=== PATIENT | female | born 1990 | race Asian ===

== ENCOUNTER 2017-06-05 18:12 | Emergency (ER) | payer OTHER ==
[~2017-06-05] VITALS: Ht 167.6 cm; Wt 74.8 kg
--- NOTE | 2017-06-05 18:34 | ED GU-Female ---
General Stated Complaint: BACK PAIN;ABD PAIN Source: patient Exam Limitations: language barrier (using a Google hull and deck remover text device) History of Present Illness Time seen by provider: 18:29 Initial Comments Patient presents the ER by private conveyance with a chief complaint of burning when she peas as well as some bilateral lower inguinal pain that extends to her back on both sides. She has no history of stones. She is not on any medications nor does she have any significant medical or surgical history. Her last menstrual period was May 09. Allergies and Home Medications Allergies Coded Allergies: No Known Drug Allergies (Unverified , 06/05/17) Home Medications No Active Prescriptions or Reported Meds Constitutional: No chills, No diaphoresis, No fever, No malaise Respiratory: No cough, No short of breath Cardiovascular: No chest pain, No palpitations Gastrointestinal: see HPI, abdominal pain (LLQ, right lower quadrant), No constipation, No heartburn, No nausea, No vomiting Genitourinary: burning, denies discharge, dysuria : No Musculoskeletal: see HPI, back pain, No joint pain, No joint swelling Skin: No pruritus, No rash Psychiatric/Neurological: Denies Emotional Problems, Denies Headache Past Vqvzmya-Fqkwsy-Kldnwd Hx Patient Social History Alcohol Use: Denies Use Recreational Drug Use: No Smoking Status: Never a Smoker Recent Foreign Travel: No Contact w/Someone Who Travel: No Physical Exam Vital Signs Vital Sign - Last 12Hours 06/05/17 18:28 Temp 97.0 Pulse 104 Resp 20 B/P (MAP) 137/85 Pulse Ox 100 Capillary Refill : General Appearance: WD/WN, no apparent distress HEENT: PERRL/EOMI, pharynx normal Neck: full range of motion, normal inspection Back: normal inspection, no CVA tenderness Extremities: normal inspection, no pedal edema, normal capillary refill Neurologic/Psychiatric: alert, oriented x 3 Skin: normal color, warm/dry Progress/Results/Core Measures Results/Orders Lab Results Laboratory Tests Test 06/05/17 18:40 Range/Units Urine Color YELLOW Urine Clarity SLIGHTLY CLOUDY Urine pH 7 5-9 Urine Specific [place] 1.015 L 1.016-1.022 Urine Protein NEGATIVE NEGATIVE Urine Glucose (UA) NEGATIVE NEGATIVE Urine Ketones NEGATIVE NEGATIVE Urine Nitrite NEGATIVE NEGATIVE Urine Bilirubin NEGATIVE NEGATIVE Urine Urobilinogen NORMAL NORMAL MG/DL Urine Leukocyte Esterase 1+ H NEGATIVE Urine RBC (Auto) 2+ H NEGATIVE Urine RBC 0-2 /HPF Urine WBC 0-2 /HPF Urine Squamous Epithelial Cells 5-10 /HPF Urine Crystals NONE /LPF Urine Bacteria FEW H /HPF Urine Casts NONE /LPF Urine Mucus NEGATIVE /LPF Urine Culture Indicated NO My Orders Orders - LUISA WILCOX Ua Culture If Indicated (06/05/17 18:35) Urine Bedside (06/05/17 18:35) Us Non Ob Pelvis Comp/Transvag (06/05/17 19:10) Vital Signs/I&O Vital Sign - Last 12Hours 06/05/17 18:28 Temp 97.0 Pulse 104 Resp 20 B/P (MAP) 137/85 Pulse Ox 100 Progress Note #1: Time: 19:11 Progress Note Urinalysis doesn't really give us an excellent information for her one-week bilateral lower pelvic pain. I would have concern for possible tubal torsion versus other problem. We'll go ahead and obtain a ultrasound of her pelvis this time. We used the language line to convey this information to the patient and she is okay with this. Progress Note #2: Time: 21:15 Diagnostic Imaging Diagonstic Imaging: Ultrasound Plain Films/CT/US/NM/MRI: pelvis Comments NAME: NANDINI HUERTA [facility] REC#: [id number] PHYSICIAN: LUISA WILCOX MD CC: SERA OSPINA MD; LUISA WILCOX Page 1 of 1 RADIOLOGY REPORT VIA [facility]. [place], [place] CC: SERA OSPINA MD; LUISA WILCOX Page 1 of 1 RADIOLOGY REPORT NAME: NANDINI HUERTA [facility] REC#: [id number] PT STATUS: REG ER : 1990 PHYSICIAN: LUISA WILCOX MD ADMIT DATE: 06/05/17/ER Signed Date of Exam: 06/05/17 US NON OB PELVIS COMP/TRANSVAG INDICATION: 26-year-old female with pelvic pain. COMPARISONS: None. FINDINGS: The uterus measures 5.2 cm x 4.4 cm x 4.0 cm and is retroflexed. The endometrium measures 8 mm in thickness. Right ovary measures 3.2 cm x 2.6 cm x 3.2 cm, and the left ovary measures 2.6 cm x 2.0 cm x 1.9 cm. Both ovaries show several follicles with normal flow by color Doppler. There are no abnormal adnexal masses. There is no free fluid in the cul-de-sac. IMPRESSION: Unremarkable sonographic evaluation of the uterus and adnexa. Dictated by: Dictated on workstation # [id number] Dict: 06/05/172055 Trans: 06/05/172105 Interpreted by: SERA OSPINA MD Electronically signed by: SERA OSPINA MD 06/05/172105 Reviewed: Reviewed by Me Departure Impression Impression: Primary Impression: Pelvic pain Disposition: 01 HOME, SELF-CARE Condition: Stable Departure-Patient Inst. Decision time for Depature: 21:21 Referrals: NO,LOCAL PHYSICIAN (PCP) Primary Care Physician Patient Instructions: Acute Pelvic Pain (DC) Add. Discharge Instructions: Drink plenty of fluids and take the medication as prescribed. Follow up with your primary care physician tomorrow morning. I recommend Ibuprofen 800mg every eight hours and heating pads. Scripts No Active Prescriptions or Reported Meds LUISA WILCOX Jun 05, 2017 18:34
[2017-06-05 18:47] LABS: BILIRUBIN,URINE NEGATIVE (NEGATIVE); KETONES,URINE NEGATIVE (NEGATIVE); LEUKOCYTE ESTERASE ,URINE 1+ (NEGATIVE); NITRITE,URINE NEGATIVE (NEGATIVE); PH,URINE 7 (5-9); PROTEIN,URINE NEGATIVE (NEGATIVE); UROBILINOGEN,URINE NORMAL (NORMAL)
[2017-06-05 19:02] LABS: WBC,URINE 0-2 /HPF
--- NOTE | 2017-06-05 21:04 | Diagnostic Imaging Report ---
INDICATION: 26-year-old female with pelvic pain. COMPARISONS: None. FINDINGS: The uterus measures 5.2 cm x 4.4 cm x 4.0 cm and is retroflexed. The endometrium measures 8 mm in thickness. Right ovary measures 3.2 cm x 2.6 cm x 3.2 cm, and the left ovary measures 2.6 cm x 2.0 cm x 1.9 cm. Both ovaries show several follicles with normal flow by color Doppler. There are no abnormal adnexal masses. There is no free fluid in the cul-de-sac. IMPRESSION: Unremarkable sonographic evaluation of the uterus and adnexa. Dictated by: Dictated on workstation # [id number]
[2017-06-05 21:32] VITALS: BP 0/0
[2017-06-06] MEDS ORDERED: NAPR500T PO (15:40)
[2017-06-06] MEDS ORDERED: ONDA8TAB13 PO (15:40)
== END 2017-06-05 21:32 | disposition home or self-care (01) ==
LOC: ER 18:17
DX: R10.2 Pelvic and perineal pain (principal)
CPT/HCPCS: 76830; 76856; 81000; 84703; 99282

== ENCOUNTER 2017-06-06 11:32 | Emergency (ER) | payer OTHER ==
[~2017-06-06] VITALS: Ht 167.6 cm; Wt 74.8 kg
[2017-06-06 12:41] LABS: BASOPHILS % (AUTO) 0 % (0-10); EOSINOPHILS # (AUTO) 0.1 10^3/uL (0.0-0.3); EOSINOPHILS % (AUTO) 1 % (0-10); LYMPHOCYTES # (AUTO) 1.9 X 10^3 (1.0-4.0); LYMPHOCYTES % (AUTO) 22 % (12-44); MEAN CORPUSCULAR HEMOGLOBIN 26 PG (25-34); MEAN CORPUSCULAR HGB CONC 33 G/DL (32-36); MEAN CORPUSCULAR VOLUME 80 FL (80-99); MONOCYTES # (AUTO) 0.5 X 10^3 (0.0-1.0); MONOCYTES % (AUTO) 6 % (0-12); NEUTROPHILS # (AUTO) 6.4 X 10^3 (1.8-7.8); NEUTROPHILS % (AUTO) 72 % (42-75); PLATELET COUNT 246 10^3/uL (130-400); RED BLOOD COUNT 5.07 10^6/uL (4.35-5.85); RED CELL DISTRIBUTION WIDTH 14.7 % (10.0-14.5); WHITE BLOOD COUNT 8.9 10^3/uL (4.3-11.0)
[2017-06-06 12:59] LABS: ALANINE AMINOTRANSFERASE 13 U/L (0-55); ANION GAP 8 MMOL/L (5-14); ASPARTATE AMINO TRANSFERASE 16 U/L (5-34); BILIRUBIN,TOTAL 0.4 MG/DL (0.1-1.0); BLOOD UREA NITROGEN 10 MG/DL (7-18); BUN/CREATININE RATIO 15; CALCIUM 9.4 MG/DL (8.5-10.1); CARBON DIOXIDE 26 MMOL/L (21-32); CHLORIDE 106 MMOL/L (98-107); CREATININE SERUM 0.66 MG/DL (0.60-1.30); GFR ESTIMATED > 60; GLUCOSE 91 MG/DL (70-105); POTASSIUM 3.9 MMOL/L (3.6-5.0); SODIUM 140 MMOL/L (135-145); TOTAL PROTEIN 7.3 GM/DL (6.4-8.2); hs C REACTIVE PROTEIN 0.23 MG/DL (0.00-0.50)
[2017-06-06] MEDS ORDERED: KETOROLAC 30 MG/ML VIAL IVP STA (13:26)
[2017-06-06] MEDS ORDERED: NS IV 1000 ML 1,000 ML IV ONE (13:26)
[2017-06-06] MEDS ORDERED: NS 100 ML (IVPB) BAG IV ONE (13:30)
[2017-06-06] MEDS ORDERED: ONDANSETRON 4 MG/2 ML (SDV) Z0FRAN IVP ONE (13:30)
[2017-06-06] MEDS ORDERED: IOHEXOL 350 MG/ML 100 ML (OMNIPAQUE 350) VIAL IV ONE (13:30)
--- NOTE | 2017-06-06 13:33 | ED GU-Female ---
General Chief Complaint: Abdominal/GI Problems Stated Complaint: VAG BLEEDING ABD/BACK PAIN Nursing Triage Note: LANGUAGE LINE NOTIFIED. PT STATES SHE STARTED HAVING LOWER ABD PAIN YESTERDAY MORNING AND ABNORMAL VAGINAL BLEEDING. PT STATES THAT TODAY SHE WOKE UP AND STARTED HAVING BACK PAIN AND CONTINUED TO HAVE VAGINAL BLEEDING. PT STATES LAST PERIOD WAS April. PT STATES SHE HAS 4 MORE DAYS TILL HER PERIOD STARTS. Nursing Sepsis Screen: No Definite Risk Source: patient Exam Limitations: language barrier (patient speaks vietnamese. uses google order checker packer processer to communicate.) History of Present Illness Time seen by provider: 13:05 Initial Comments 26-year-old female patient presents to the emergency department with complaints of lower abdominal pain beginning yesterday morning. Patient was seen in the emergency department yesterday by Dr. Aparicio. Does report abnormal vaginal bleeding and states it is a small amount of light pink with dark blood mixed in. States she is not supposed to start her menstrual cycle for 4 more days. Last menstrual period was May 09. Patient is unsure if she is as her and her have not been using contraceptives. Yesterday reported pain with urination and pain radiating into the bilateral groins and back. Today she reports pain is localized to the right lower quadrant. Does c/o nausea without vomiting or diarrhea. Pain is worse with walking/movement, palpation, and standing upright. Timing/Duration: yesterday, getting worse Severity/Quality: aching, stabbing Location: RLQ Radiation: suprapubic Activities at Onset: none Prior Genitourinary Problems: none Sexual [place] History: less than 2 months ago, single partner Modifying Factors: Worsens With Movement, Worsens With Palpation Allergies and Home Medications Allergies Coded Allergies: No Known Drug Allergies (Unverified , 06/05/17) Home Medications Naproxen 500 Mg Tablet, 500 MG PO BID PRN for pain, #20 Ref 0 Prescribed by: KARINE ESTRELLA on 06/06/17 1540 Ondansetron 8 Mg Tab.rapdis, 8 MG PO Q6H PRN for NAUSEA/VOMITING-1ST LINE, #10 Ref 0 Prescribed by: KARINE ESTRELLA on 06/06/17 1540 Constitutional: No chills, No fever, malaise EENTM: no symptoms reported Respiratory: No cough, No phlegm, No short of breath Cardiovascular: No chest pain, No palpitations Gastrointestinal: see HPI, abdominal pain, No constipation, No diarrhea, loss of appetite, No melena, nausea, No vomiting Genitourinary: see HPI, denies dysuria, denies frequency, denies flank pain, denies hematuria, pain LMP: May 09, 2017 Musculoskeletal: No back pain Skin: no symptoms reported Psychiatric/Neurological: No Symptoms Reported All Other Systemes Reviewed Negative Unless Noted: Yes (Negative excepted noted.) Past Drppzyk-Ygvjnj-Otxcol Hx Patient Social History Alcohol Use: Denies Use Recreational Drug Use: No Smoking Status: Never a Smoker 2nd Hand Smoke Exposure: No Recent Foreign Travel: No Contact w/Someone Who Travel: No Recent Infectious Disease Expo: No Recent Hopitalizations: No Physical Abuse: No Sexual Abuse: No Seasonal Allergies Seasonal Allergies: No Surgeries History of Surgeries: No Respiratory History of Respiratory Disorde: No Cardiovascular History of Cardiac Disorders: No Neurological History of Neurological Disord: No Reproductive System Last Menstrual Period: May 09, 2017 Hx : 0 Genitourinary History of Genitourinary Disor: No Gastrointestinal History of Gastrointestinal Di: No Musculoskeletal History of Musculoskeletal Dis: No Endocrine History of Endocrine Disorders: No HEENT History of HEENT Disorders: No Cancer History of Cancer: No Psychosocial History of Psychiatric Problem: No Suicide Risk Score: 0 Integumentary History of Skin or Integumenta: No Blood Transfusions History of Blood Disorders: No Reviewed Nursing Assessment Reviewed/Agree w Nursing PMH: Yes Family Medical History Significant Family History: No Pertinent Family Hx Physical Exam Vital Signs Vital Sign - Last 12Hours 06/06/17 12:11 Temp 98.1 Pulse 104 Resp 20 B/P (MAP) 139/86 Pulse Ox 100 O2 Delivery Room Air Capillary Refill : Less Than 3 Seconds General Appearance: WD/WN, no apparent distress HEENT: PERRL/EOMI, pharynx normal Neck: supple, normal inspection Cardiovascular: regular rate, rhythm, no murmur Respiratory: lungs clear, normal breath sounds, no respiratory distress, no accessory muscle use Gastrointestinal: normal bowel sounds, soft, no organomegaly, No distended, guarding (RLQ), rebound (RLQ), tenderness (suprapubic and RLQ), other ((+) rovsing sign.) Back: normal inspection, no CVA tenderness Extremities: no pedal edema, normal capillary refill Neurologic/Psychiatric: alert, normal mood/affect, oriented x 3 Skin: normal color, warm/dry Progress/Results/Core Measures Results/Orders Lab Results Laboratory Tests Test 06/06/17 12:30 Range/Units White Blood Count 8.9 4.3-11.0 10^3/uL Red Blood Count 5.07 4.35-5.85 10^6/uL Hemoglobin 13.4 11.5-16.0 G/DL Hematocrit 41 35-52 % Mean Corpuscular Volume 80 80-99 FL Mean Corpuscular Hemoglobin 26 25-34 PG Mean Corpuscular Hemoglobin Concent 33 32-36 G/DL Red Cell Distribution Width 14.7 H 10.0-14.5 % Platelet Count 246 130-400 10^3/uL Mean Platelet Volume 11.0 H 7.4-10.4 FL Neutrophils (%) (Auto) 72 42-75 % Lymphocytes (%) (Auto) 22 12-44 % Monocytes (%) (Auto) 6 0-12 % Eosinophils (%) (Auto) 1 0-10 % Basophils (%) (Auto) 0 0-10 % Neutrophils # (Auto) 6.4 1.8-7.8 X 10^3 Lymphocytes # (Auto) 1.9 1.0-4.0 X 10^3 Monocytes # (Auto) 0.5 0.0-1.0 X 10^3 Eosinophils # (Auto) 0.1 0.0-0.3 10^3/uL Basophils # (Auto) 0.0 0.0-0.1 10^3/uL Sodium Level 140 135-145 MMOL/L Potassium Level 3.9 3.6-5.0 MMOL/L Chloride Level 106 98-107 MMOL/L Carbon Dioxide Level 26 21-32 MMOL/L Anion Gap 8 5-14 MMOL/L Blood Urea Nitrogen 10 7-18 MG/DL Creatinine 0.66 0.60-1.30 MG/DL Estimat Glomerular Filtration Rate > 60 BUN/Creatinine Ratio 15 Glucose Level 91 70-105 MG/DL Calcium Level 9.4 8.5-10.1 MG/DL Total Bilirubin 0.4 0.1-1.0 MG/DL Aspartate Amino Transf (AST/SGOT) 16 5-34 U/L Alanine Aminotransferase (ALT/SGPT) 13 0-55 U/L Alkaline Phosphatase 70 40-136 U/L C-Reactive Protein High Sensitivity 0.23 0.00-0.50 MG/DL Total Protein 7.3 6.4-8.2 GM/DL Albumin 4.0 3.2-4.5 GM/DL Serum Test, Qualitative NEGATIVE NEGATIVE My Orders Orders - KARINE ESTRELLA Saline Lock/Iv-Start (06/06/17 12:34) Cbc With Automated Diff (06/06/17 12:34) Comprehensive Metabolic Panel (06/06/17 12:34) Hs C Reactive Protein (06/06/17 12:34) Hcg,Qualitative Serum (06/06/17 12:34) Ct Abd/Pelv W (Appendicitis) (06/06/17 13:26) Ondansetron Injection (Zofran Injectio (06/06/17 13:30) Ns Iv 1000 Ml (Sodium Chloride 0.9%) (06/06/17 13:26) Ketorolac Injection (Toradol Injection) (06/06/17 13:26) Iohexol Injection (Omnipaque 350 Mg/Ml 1 (06/06/17 13:30) Ns (Ivpb) (Sodium Chloride 0.9% Ivpb Bag (06/06/17 13:30) Medications Given in ED Current Medications Medications Dose Ordered Sig/Preet Route Start Time Stop Time Status Last Admin Dose Admin Iohexol 100 ml ONCE ONCE IV 06/06/17 13:30 06/06/17 13:36 DC 06/06/17 13:55 100 ML Ondansetron HCl 4 mg ONCE ONCE IVP 06/06/17 13:30 06/06/17 13:31 DC 06/06/17 13:43 4 MG Sodium Chloride 100 ml ONCE ONCE IV 06/06/17 13:30 06/06/17 13:36 DC 06/06/17 13:55 80 ML Sodium Chloride 1,000 ml @ 0 mls/hr Q0M ONCE IV 06/06/17 13:26 06/06/17 13:28 DC 06/06/17 13:44 1,000 MLS/HR Vital Signs/I&O Vital Sign - Last 12Hours 06/06/17 06/06/17 12:11 15:51 Temp 98.1 98.1 Pulse 104 104 Resp 20 20 B/P (MAP) 139/86 Pulse Ox 100 100 O2 Delivery Room Air Room Air Blood Pressure Mean: 103 Diagnostic Imaging Diagonstic Imaging: CT Plain Films/CT/US/NM/MRI: abdomen, pelvis Comments FINDINGS: The lung bases are clear. The liver appears normal. Gallbladder is normal. Bile ducts are not dilated. Pancreas is normal. The spleen is normal. The adrenal glands are normal. The kidneys show a few small 2 mm and 3 mm calculi within the calyces bilaterally without evidence of obstruction. There is enhancement of the aorta and abdominal vessels as well as abdominal organs which show normal enhancement. The stomach is not distended. Small bowel appears normal. The colon shows normal stool and gas pattern. The appendix is noted extending posterior to the cecum towards the right ovary. The appendix appears normal. The ovaries are not enlarged. The uterus appears normal. Bladder is normal. There is no free fluid present. No findings to indicate diverticulitis. No intra-abdominal adenopathy of pathologic size. No bony lesions are demonstrated. IMPRESSION: 1. The appendix is normal. 2. The ovaries appear normal with no free fluid. 3. No evidence of diverticulitis. 4. There are several small nonobstructing calyceal calculi noted bilaterally. Dictated by : Dictated on workstation # [id number] Reviewed: Reviewed by Me (radiology report reviewed by me) Departure Communication (Admissions) Progress Notes Laboratory and diagnostic findings discussed with the patient. Patient was asked multiple times for a urine specimen. Patient states she is unable to give a urine specimen. Refuses to stay for urinalysis and refuses pelvic exam. Also states she would like to follow-up with the antisqueak filler for pelvic exam/ Pap smear. Patient reports pain is improved. I have discussed risks and possible complications associated with leaving without having a pelvic exam and urinalysis done. Patient voices understanding and continues to refuse pelvic exam and urinalysis testing. I've advised the patient to follow-up with the antisqueak filler of her choice for recheck and for formal pelvic/Pap smear. Patient verbalizes understanding and states she will call Friday morning for appointment time. Dr. Kimbrough notified of patient's refusal. Impression Impression: Primary Impression: Abdominal pain Qualified Codes: R10.30 - Lower abdominal pain, unspecified Additional Impression: Nausea Disposition: HOME, SELF-CARE Condition: Improved Departure-Patient Inst. Decision time for Depature: 15:37 Referrals: SOTO GARCIA DO NO,LOCAL PHYSICIAN (PCP) Primary Care Physician MELVA ROWLEY ANGELA C DO Patient Instructions: Acute Abdomen (Belly Pain), Adult (DC) Add. Discharge Instructions: All discharge instructions reviewed with patient and/or family. Voiced understanding. Medications as instructed. Drink plenty of fluids. Tylenol extra strength byzq-esb-vqqkvpi as directed for pain. Follow-up with Melva rowley APRN, Dr. Zuniga, or Dr. Garcia as an outpatient for recheck and for formal pelvic/Pap smear. Call Friday for appointment time. Return to the emergency department for worsened pain, fever, vaginal bleeding with greater than 2 pads per hour for greater than 2 hours, vaginal discharge, inability to urinate, abdominal swelling, or any other concerns. Scripts Ondansetron (Ondansetron Odt) 8 Mg Tab.rapdis 8 MG PO Q6H Y for NAUSEA/VOMITING-1ST LINE, #10 TAB 0 Refills Prov: KARINE ESTRELLA 06/06/17 Naproxen (Naprosyn) 500 Mg Tablet 500 MG PO BID Y for pain, #20 TAB 0 Refills Prov: KARINE ESTRELLA 06/06/17 KARINE ESTRELLA Jun 06, 2017 13:33
--- NOTE | 2017-06-06 14:18 | Diagnostic Imaging Report ---
PROCEDURE: CT abdomen and pelvis with contrast, rule out appendicitis. TECHNIQUE: Multiple contiguous axial images were obtained through the abdomen and pelvis after the administration of intravenous contrast. INDICATION: Lower abdominal pain. Vaginal bleeding. FINDINGS: The lung bases are clear. The liver appears normal. Gallbladder is normal. Bile ducts are not dilated. Pancreas is normal. The spleen is normal. The adrenal glands are normal. The kidneys show a few small 2 mm and 3 mm calculi within the calyces bilaterally without evidence of obstruction. There is enhancement of the aorta and abdominal vessels as well as abdominal organs which show normal enhancement. The stomach is not distended. Small bowel appears normal. The colon shows normal stool and gas pattern. The appendix is noted extending posterior to the cecum towards the right ovary. The appendix appears normal. The ovaries are not enlarged. The uterus appears normal. Bladder is normal. There is no free fluid present. No findings to indicate diverticulitis. No intra-abdominal adenopathy of pathologic size. No bony lesions are demonstrated. IMPRESSION: 1. The appendix is normal. 2. The ovaries appear normal with no free fluid. 3. No evidence of diverticulitis. 4. There are several small nonobstructing calyceal calculi noted bilaterally. Dictated by: Dictated on workstation # [id number]
[2017-06-06] MEDS ORDERED: ONDA8TAB13 PO (15:40)
[2017-06-06] MEDS ORDERED: NAPR500T PO (15:40)
[2017-06-06 15:51] VITALS: BP 139/86
== END 2017-06-06 15:51 | disposition home or self-care (01) ==
LOC: EDUNIT# 11:32 → ER 11:38
DX: R10.31 Right lower quadrant pain (principal); R11.0 Nausea
CPT/HCPCS: 36415; 74177; 80053; 84703; 85025; 86141; 96361; 96374; 96375

== ENCOUNTER 2017-06-20 19:18 | Emergency (ER) | payer OTHER ==
[~2017-06-20] VITALS: Ht 167.6 cm; Wt 74.8 kg
[~2017-06-20 19:18] MED LIST: NAPR500T PO; ONDA8TAB13 PO
[2017-06-20 23:26] LABS: BILIRUBIN,URINE NEGATIVE (NEGATIVE); KETONES,URINE NEGATIVE (NEGATIVE); LEUKOCYTE ESTERASE ,URINE NEGATIVE (NEGATIVE); NITRITE,URINE NEGATIVE (NEGATIVE); PH,URINE 7 (5-9); PROTEIN,URINE NEGATIVE (NEGATIVE); UROBILINOGEN,URINE NORMAL (NORMAL)
[2017-06-21 00:59] VITALS: BP 124/69
[2017-06-21] MEDS ORDERED: POLY119P5 PO (00:59)
--- NOTE | 2017-06-21 00:59 | ED General ---
General Chief Complaint: Dizziness/Syncope Stated Complaint: DIZZINESS Nursing Triage Note: VIA TRANSLATION LINE: PT HERE FOR FEELING DIZZINESS. CONCERNED TO HAVE B/P AND HGB CHECKED. PT STATED HER ONLY PAIN IS STOMACH FEELS LIKE WHEN NEARING A PERIOD. 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 She has nausea and reports constipation. She denies fever. She's not been feeling well for about 2 days. Her last menstrual period was 915. History was first provided by a bilingual family member via phone and then by an official heat treat worker on the language line. History was difficult to obtain even with appropriate heat treat worker due to cultural barriers and this providers difficulty understanding the patient's complaints. Patient was repeatedly referring to her low blood pressure yet multiple blood pressures in the ER were normal. She reports a sensation of what seemed to be near syncope. Allergies and Home Medications Allergies Coded Allergies: No Known Drug Allergies (Unverified , 06/05/17) Home Medications Naproxen 500 Mg Tablet, 500 MG PO BID PRN for pain, #20 Ref 0 Prescribed by: KARINE ESTRELLA on 06/06/17 1540 Ondansetron 8 Mg Tab.rapdis, 8 MG PO Q6H PRN for NAUSEA/VOMITING-1ST LINE, #10 Ref 0 Prescribed by: KARINE ESTRELLA on 06/06/17 1540 Polyethylene Glycol 3350 119 Gm Powder, 17 GM PO BID, #1 Dissolve in 8-12 ounces of fluid. Prescribed by: FLOYD MARTIN on 06/21/17 0059 Constitutional: see HPI EENTM: no symptoms reported Respiratory: no symptoms reported Cardiovascular: see HPI Gastrointestinal: see HPI Genitourinary: no symptoms reported : No LMP: Jun 06, 2017 Musculoskeletal: no symptoms reported Skin: no symptoms reported Psychiatric/Neurological: No Symptoms Reported Hematologic/Lymphatic: No Symptoms Reported Past Pnxgmlb-Vsgbmw-Ygpeqw Hx Patient Social History Alcohol Use: Denies Use Recreational Drug Use: No Smoking Status: Unknown if Ever Smoked 2nd Hand Smoke Exposure: No Recent Foreign Travel: No Contact w/Someone Who Travel: No Recent Infectious Disease Expo: No Recent Hopitalizations: No Seasonal Allergies Seasonal Allergies: No Surgeries History of Surgeries: No Respiratory History of Respiratory Disorde: No Cardiovascular History of Cardiac Disorders: No Neurological History of Neurological Disord: No Reproductive System : No Last Menstrual Period: Jun 06, 2017 Genitourinary History of Genitourinary Disor: No Gastrointestinal History of Gastrointestinal Di: No Musculoskeletal History of Musculoskeletal Dis: No Endocrine History of Endocrine Disorders: No HEENT History of HEENT Disorders: No Cancer History of Cancer: No Psychosocial History of Psychiatric Problem: No Integumentary History of Skin or Integumenta: No Blood Transfusions History of Blood Disorders: No Family Medical History Significant Family History: No Pertinent Family Hx Physical Exam Vital Signs Vital Sign - Last 12Hours 06/20/17 22:20 Temp 97.9 Pulse 89 Resp 18 B/P (MAP) 124/69 Pulse Ox 100 O2 Delivery Room Air Capillary Refill : Less Than 3 Seconds General Appearance: No Apparent Distress, WD/WN HEENT: PERRL/EOMI, Normal ENT Inspection Respiratory: Lungs Clear, Normal Breath Sounds, No Accessory Muscle Use, No Respiratory Distress Cardiovascular: Regular Rate, Rhythm, No Edema, No Murmur Gastrointestinal: Normal Bowel Sounds, Non Tender, Soft Neurologic/Psychiatric: Alert, Oriented x3, No Motor/Sensory Deficits, Normal Mood/Affect, refractory repairer II-XII Norm as Tested Skin: Normal Color, Warm/Dry Progress/Results/Core Measures Results/Orders Lab Results My Orders Vital Signs/I&O Blood Pressure Mean: 87 Point of Care Testing Urine -Bedside: Negative Progress Note : Progress Note History was difficult to obtain even with bilingual family members and the language line. Patient repeatedly stated that her blood pressure was low. However, multiple blood pressure measurements in the emergency room were normal. She also stated that her symptoms were improving yet she was demanding medication for her lightheadedness. She also demanded labs be performed. However, when informed that lab evaluation would probably take at least one hour , she declined to stay to have labs performed or have IV fluids infused. Departure Impression Impression: Primary Impression: Lightheadedness Additional Impressions: Left lower quadrant pain Constipation Qualified Codes: K59.00 - Constipation, unspecified Disposition: HOME, SELF-CARE Condition: Stable Departure-Patient Inst. Decision time for Depature: 00:57 Referrals: NO,LOCAL PHYSICIAN (PCP/Family) Primary Care Physician Patient Instructions: Constipation in Adults Add. Discharge Instructions: Drink plenty of clear liquids. You may use MiraLAX (polyethylene glycol) as prescribed for constipation. Return to the emergency room if symptoms worsen. All discharge instructions reviewed with patient and/or family. Voiced understanding. Scripts Polyethylene Glycol 3350 (Miralax) 119 Gm Powder 17 GM PO BID for Constipation, #1 EA Dissolve in 8-12 ounces of fluid. Prov: FLOYD MATSON MD 06/21/17 FLOYD MATSON MD Jun 21, 2017 00:59
== END 2017-06-21 00:59 | disposition home or self-care (01) ==
LOC: EDUNIT# 19:18 → ER 19:19
DX: K59.00 Constipation, unspecified (principal); R42 Dizziness and giddiness
CPT/HCPCS: 81000; 84703; 99283